=== PATIENT | male | born 1985 | race Caucasian/White ===

== ENCOUNTER 2018-12-06 17:55 | Emergency (ER) | payer BC ==
[2018-12-06] MEDS ORDERED: Aspirin 81 MG Tab.Chew PO ONE (18:16)
[2018-12-06] MEDS ORDERED: Sodium Chloride 0.9% 10 ML Syringe FLUSH PRN (18:17)
--- NOTE | 2018-12-06 18:37 | CR ---
Medical history: 33-year-old male chest pain. Interpretation: Negative. Upright AP portable chest film reveals normal cardiac silhouette and pulmonary vascularity. No alveolar edema or dependent effusion. (External nurse monitoring leads). No lung mass, hilar lymphadenopathy or focal lobar pneumonia. No atelectasis/collapse. No pneumothorax or free subdiaphragmatic air.
[2018-12-06 18:45] LABS: ANION GAP 13.3; CHLORIDE,CL 103 mmol/L (101-111); SODIUM,NA 136 mmol/L (135-145)
[2018-12-06] MEDS ORDERED: predniSONE 20 MG Tab PO ONE (18:57)
[2018-12-06] MEDS ORDERED: Acetaminophen/Codeine 300-30 MG Tab PO ONE (18:58)
--- NOTE | 2018-12-06 19:02 | EDM.PDOC ---
Scribed by Tricia Pate 12/06/18 1842 for Shane Dimas MD ED HPI GENERAL MEDICAL PROBLEM - General Chief Complaint: Chest Pain Stated Complaint: CHEST PAIN THAT GO INTO ARM [id number] Time Seen by Provider: 12/06/18 18:06 Source of Information: Reports: Patient, RN, RN Notes Reviewed History Limitations: Reports: No Limitations - History of Present Illness INITIAL COMMENTS - FREE TEXT/NARRATIVE: Patient presents to ER by POV with complaint of onset of sharp chest pain at 2p.m. Patient states he has had a cough with sputum production for 2 months. He describes the pain as sharp that radiates to the left shoulder. It is worse with cough, deep breathing and movement. Denies fever, chills, edema, palpitations or orthopnea. He has a history of atrial fibrillation. Onset: Today Duration: Constant Location: Reports: Chest Quality: Reports: Sharp Severity: Severe Improves with: Reports: None Worsens with: Reports: None Associated Symptoms: Reports: No Other Symptoms Chest Pain Score (Numeric/FACES): 8 - Related Data Allergies Allergy/AdvReac Type Severity Reaction Status Date / Time Penicillins Allergy Cannot Verified 12/06/18 18:07 Remember Home Meds: Home Meds . [No Known Home Meds] 12/06/18 [History] Past Medical History Cardiovascular History: Reports: Afib Social & Family History - Family History Family Medical History: Noncontributory - Tobacco Use Smoking Status *Q: Current Every Day Smoker Tobacco Use Within Last Twelve Months: Cigarettes - Living Situation & Occupation Living situation: Reports: Occupation: Employed ED ROS GENERAL - Review of Systems Review Of Systems: ROS reveals no pertinent complaints other than HPI. ED EXAM, GENERAL - Physical Exam Exam: See Below Exam Limited By: No Limitations General Appearance: Alert, WD/WN, No Apparent Distress Eye Exam: Bilateral Eye: EOMI, Normal Inspection, PERRL Ears: Normal External Exam, Normal Canal, Hearing Grossly Normal, Normal TMs Nose: Normal Inspection, Normal Mucosa, No Blood Throat/Mouth: Normal Inspection, Normal Lips, Normal Teeth, Normal Gums, Normal Oropharynx, Normal Voice, No Airway Compromise Neck: Normal Inspection, Supple, Non-Tender, Full Range of Motion Respiratory/Chest: No Respiratory Distress, No Accessory Muscle Use, Decreased Breath Sounds, Other (Chest pain is reproducible by firm palpation). No: Rales , Rhonchi, Wheezing Cardiovascular: Normal Peripheral Pulses, Regular Rate, Rhythm, No Edema, No Gallop, No JVD, No Murmur, No Rub GI/Abdominal: Normal Bowel Sounds, Soft, Non-Tender, No Organomegaly, No Distention, No Abnormal Bruit, No Mass (Male) Exam: Deferred Rectal (Males) Exam: Deferred Back Exam: Normal Inspection, Full Range of Motion, NT Extremities: Normal Inspection, Normal Range of Motion, Non-Tender, Normal Capillary Refill, No Pedal Edema Neurological: Alert, Oriented, CN II-XII Intact, Normal Cognition, Normal Gait, Normal Reflexes, No Motor/Sensory Deficits Psychiatric: Normal Affect, Normal Mood Skin Exam: Warm, Dry, Intact, Normal Color, No Rash EKG INTERPRETATION EKG Date: 12/06/18 Time: 18:10 Rhythm: Other (Sinus tachycardia) Rate (Beats/Min): 104 [place]: Normal P-Wave: Present QRS: Normal ST-T: Normal QT: Normal Comparison: NA - No Prior EKG Course - Vital Signs Last Recorded V/S: Last Vital Signs Temp 37.3 C 12/06/18 18:08 Pulse 100 12/06/18 18:08 Resp 18 12/06/18 18:08 BP 124/84 12/06/18 18:08 Pulse Ox 98 12/06/18 18:08 - Orders/Labs/Meds Orders: Active Orders 24 hr Category Date Time Status EKG 12 Lead [EKG Documentation Completion] [RC] STAT Care 12/06/18 18:17 Active Peripheral IV Care [RC] . DIRECTED Care 12/06/18 18:21 Active DRUG SCREEN URINE BIORAD [URCHEM] Stat Lab 12/06/18 18:21 Ordered UA RFX TR AND CULT IF INDIC [URIN] Stat Lab 12/06/18 18:21 Ordered Sodium Chloride 0.9% [Saline Flush] Med 12/06/18 18:17 Active 10 ml FLUSH ASDIRECTED PRN Peripheral IV Insertion Adult [OM.PC] Stat Oth 12/06/18 18:17 Ordered Medication Orders Sodium Chloride (Saline Flush) 10 ml FLUSH ASDIRECTED PRN PRN Reason: Keep Vein Open Last Admin: 12/06/18 18:30 Dose: 10 ml Labs: Laboratory Tests 01/10/1412/06/18 12/06/18 Range/Units 18:10 18:10 18:10 WBC 8.6 (5.0-10.0) 10^3/uL RBC 5.42 (4.6-6.2) 10^6/uL Hgb 16.3 (14.0-18.0) g/dL Hct 44.7 (40.0-54.0) % MCV 82.5 (80-100) fL MCH 30.1 (27.0-34.0) pg MCHC 36.5 H (33.0-35.0) g/dL Plt Count 158 (150-450) 10^3/uL Neut % (Auto) 68.5 (42.2-75.2) % Lymph % (Auto) 22.2 (20.5-50.1) % [place] % (Auto) 6.7 (2-8) % Eos % (Auto) 2.4 (1.0-3.0) % Baso % (Auto) 0.2 (0.0-1.0) % D-Dimer, Quantitative < 100 (0-400) ng/mL Sodium 136 (135-145) mmol/L Potassium 3.3 L (3.6-5.0) mmol/L Chloride 103 (101-111) mmol/L Carbon Dioxide 23.0 (21.0-31.0) mmol/L Anion Gap 13.3 BUN 14 (7-18) mg/dL Creatinine 0.9 (0.6-1.3) mg/dL Est Cr Clr Drug Dosing 108.13 mL/min Estimated GFR (MDRD) > 60 BUN/Creatinine Ratio 15.55 Glucose 97 (74-105) mg/dL Calcium 8.7 (8.4-10.2) mg/dl Total Bilirubin 1.4 H (0.2-1.0) mg/dL AST 27 (10-42) IU/L ALT 18 (10-60) IU/L Alkaline Phosphatase 64 (42-121) IU/L Troponin I < 0.02 (0.00-0.02) ng/ml Total Protein 7.2 (6.7-8.2) g/dl Albumin 4.2 (3.2-5.5) g/dl Globulin 3.0 Albumin/Globulin Ratio 1.40 Lipase 24 (22-51) U/L Meds: Medications Generic Name Dose Route Start Last Admin Trade Name Cynthia PRN Reason Stop Dose Admin Sodium Chloride 10 ml 12/06/18 18:17 12/06/18 18:30 Saline Flush FLUSH 10 ml ASDIRECTED PRN Administration Keep Vein Open Discontinued Medications Generic Name Dose Route Start Last Admin Trade Name Cynthia PRN Reason Stop Dose Admin Acetaminophen/Codeine Phosphate 1 tab 12/06/18 18:58 Tylenol With Codeine No.3 300mg/30mg PO 12/06/18 18:59 ONETIME ONE Aspirin 324 mg 12/06/18 18:16 12/06/18 18:30 Aspirin PO 12/06/18 18:17 324 mg ONETIME ONE Administration Prednisone 60 mg 12/06/18 18:57 Prednisone PO 12/06/18 18:58 ONETIME ONE - Radiology Interpretation Free Text/Narrative:: Chest XR: no acute process, see Rad. report. Departure - Departure Time of Disposition: 19:00 Disposition: Home, Self-Care 01 Condition: Good Clinical Impression: Non-cardiac chest pain, Pleurisy without effusion Instructions: Pleurisy, Nonspecific Chest Pain, [id number] Forms: ED Department Discharge Additional Instructions: Rx: Prednisone 20mg *Take with food. Try to quit smoking. Follow up in clinic next week if not improved. - My Orders Last 24 Hours: My Active Orders 12/06/18 18:17 EKG 12 Lead [EKG Documentation Completion] [RC] STAT Sodium Chloride 0.9% [Saline Flush] 10 ml FLUSH ASDIRECTED PRN Peripheral IV Insertion Adult [OM.PC] Stat 12/06/18 18:21 Peripheral IV Care [RC] . DIRECTED DRUG SCREEN URINE BIORAD [URCHEM] Stat UA RFX TR AND CULT IF INDIC [URIN] Stat - Assessment/Plan Last 24 Hours: My Active Orders 12/06/18 18:17 EKG 12 Lead [EKG Documentation Completion] [RC] STAT Sodium Chloride 0.9% [Saline Flush] 10 ml FLUSH ASDIRECTED PRN Peripheral IV Insertion Adult [OM.PC] Stat 12/06/18 18:21 Peripheral IV Care [RC] . DIRECTED DRUG SCREEN URINE BIORAD [URCHEM] Stat UA RFX TR AND CULT IF INDIC [URIN] Stat I have read and agree with the documentation that has been completed regarding this visit. By signing this record, I attest that the documentation was completed in my physical presence and is an accurate record of the encounter.
== END 2018-12-06 19:16 | disposition home or self-care (01) ==
LOC: DL.ED 17:55
DX: R07.89 Other chest pain (principal); R09.1 Pleurisy; I48.91 Unspecified atrial fibrillation; F17.210 Nicotine dependence, cigarettes, uncomplicated; Z88.0 Allergy status to penicillin
CPT/HCPCS: 36415; 71045; 80053; 83690; 84484; 85025; 85379; 93005; 99285; A9270-GY

== ENCOUNTER 2019-01-19 02:51 | Emergency (ER) | payer BC ==
[2019-01-19] MEDS ORDERED: Ondansetron 4 MG Tab.DIS PO ONE (02:52)
[2019-01-19] MEDS ORDERED: Promethazine 25 MG/ML SDV IM ONE (03:11)
[2019-01-19] MEDS ORDERED: Albuterol 0.083% 2.5 MG/3 ML Neb Soln NEB ONE (03:11)
[2019-01-19] MEDS ORDERED: GI Cocktail Oral Solution 30 ML PO ONE (03:11)
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
[2019-01-19] MEDS ORDERED: Omeprazole 20 MG Cap.CR PO ONE (03:50)
[2019-01-19] MEDS ORDERED: Albuterol 6.7 GM Inhaler INH ONE (03:52)
[2019-01-19] MEDS ORDERED: Ondansetron 4 MG Tab.DIS ONE (04:00)
== END 2019-01-19 04:11 | disposition home or self-care (01) ==
LOC: DL.ED 02:51
DX: T52.0X1A Toxic effect of petroleum products, accidental (unintentional), initial encounter (principal); R10.9 Unspecified abdominal pain; R11.2 Nausea with vomiting, unspecified; R05 Cough; K21.9 Gastro-esophageal reflux disease without esophagitis; F17.210 Nicotine dependence, cigarettes, uncomplicated; Z88.0 Allergy status to penicillin; Z79.899 Other long term (current) drug therapy
CPT/HCPCS: 71046; 94640; 96372; 99284; A9270; J2550; J7613-GY